=== PATIENT | male | born 1990 | race Two or more races ===

== ENCOUNTER 2024-02-03 21:16 | Emergency (ER) | payer OTHER ==
[~2024-02-03] VITALS: Ht 172.7 cm; Wt 112.9 kg
[2024-02-03] MEDS ORDERED: COZAAR100 MG (22:07)
[2024-02-04] MEDS ORDERED: RINGERS SOLUTION,LACTATED 1,000 ML IV STA (00:57)
[2024-02-04] MEDS ORDERED: MEPERIDINE HCL/PF 50 MG/ML VIAL IM STA (00:58)
[2024-02-04] MEDS ORDERED: PROMETHAZINE HCL 25 MG/ML AMPUL IM STA (00:58)
[2024-02-04] MEDS ORDERED: HYOSCYAMINE SULFATE 0.125 MG TAB.SUBL SL ONE (01:00)
[2024-02-04] MEDS ORDERED: PIPERACILLIN/TAZOBACTAM SODIUM 3.375 GM VIAL IV STA (01:11)
[2024-02-04 02:29] LABS: HEMATOCRIT 40.5 % (39.0-48.0); HEMOGLOBIN 14.2 g/dL (13-16.00); MEAN CELL VOLUME 91.7 fL (80.0-100.00); MEAN CORPUSCULAR HEMOGLOBIN 32.1 pg (27.00-32.0); PLATELET COUNT 330 K/uL (150-450); RED BLOOD COUNT 4.42 M/uL (4.00-6.00); RED CELL DISTRIBUTION WIDTH 12.1 % (11.5-14.5)
[2024-02-04 02:47] LABS: URINE APPEARANCE Clear; URINE BILIRRUBIN Negative (NEGATIVE); URINE BLOOD Negative; URINE COLOR Yellow; URINE GLUCOSE Negative (NEGATIVE); URINE LEUKOCYTE Negative; URINE NITRATE Negative; URINE PROTEIN Trace (NEGATIVE); URINE UROBILINOGEN 0.2 E.U./dl
[2024-02-04 02:50] LABS: URINE BACTERIA 8.8 uL (0.0-1933); URINE WBC 3.2 uL (0.0-23.2)
[2024-02-04 02:50] LABS: INR 1.05; PARTIAL THROMBOPLASTIN TIME 33.6 SECONDS (22.0-34.0)
[2024-02-04 02:54] LABS: ALBUMIN 4.2 gm/dL (3.4-5.0); BILIRUBIN TOTAL 1.33 mg/dL (0.3-1.2); CALCIUM 9.8 mg/dL (8.5-10.1); CREATININE SERUM 1.96 mg/dL (0.70-1.30); GFR 39.11; GLOBULINA 4.5 G/DL (2.4-3.5); POTASSIUM 4.08 mEq/L (3.5-5.1); TOTAL PROTEIN 8.7 gm/dL (6.4-8.2)
[2024-02-04 02:55] LABS: URINE EPITHELIAL CELLS 1.2 uL (0.0-38.8)
[2024-02-04 14:25] LABS: MEAN CELL VOLUME 91.4 fL (80.0-100.00); PLATELET COUNT 308 K/uL (150-450); RED BLOOD COUNT 4.37 M/uL (4.00-6.00); RED CELL DISTRIBUTION WIDTH 11.8 % (11.5-14.5)
== END 2024-02-04 15:47 | disposition home or self-care (01) ==
LOC: ER 21:17
PROVIDERS: General Practice
DX: K29.70 Gastritis, unspecified, without bleeding (principal); R10.9 Unspecified abdominal pain; K57.30 Diverticulosis of large intestine without perforation or abscess without bleeding

== ENCOUNTER 2024-02-20 11:52 | Emergency (ER) | payer OTHER ==
[~2024-02-20] VITALS: Ht 172.7 cm; Wt 113.4 kg
[~2024-02-20 11:52] MED LIST: COZAAR100 MG
[2024-02-20] MEDS ORDERED: KETOROLAC TROMETHAMINE 60 MG VIAL IM ONE ×2 (12:30→13:13)
[2024-02-20] MEDS ORDERED: ORPHENADRINE CITRATE 30 MG/ML AMPUL IM ONE (12:30)
[2024-02-20] MEDS ORDERED: ORPHENADRINE CITRATE 30 MG/ML AMPUL ONE (13:13)
[2024-02-20] MEDS ORDERED: NORFLEX100MG PO (14:54)
== END 2024-02-20 15:16 | disposition home or self-care (01) ==
LOC: ER 11:53
DX: M25.532 Pain in left wrist (principal)